=== PATIENT | male | born 1975 | race Asian ===

== ENCOUNTER 2021-04-30 05:36 | Day surgery (SDC) | payer OTHER, SELFPAY ==
[~2021-04-30] VITALS: Ht 175.3 cm; Wt 65.8 kg
[2021-04-30] MEDS ORDERED: fentaNYL citrate 0.05 MG/ML VIAL ONE (07:38)
[2021-04-30] MEDS ORDERED: LIDOCAINE 2% 100 MG/5 ML UJET TP ONE (07:39)
[2021-04-30] MEDS ORDERED: MIDAZOLAM 5 MG/5 ML VIAL ONE (07:39)
[2021-04-30] MEDS ORDERED: DEXTROSE 50% 50 ML SYR IVP ONE (07:40)
[2021-04-30] MEDS ORDERED: diphenhydrAMINE 50 MG/ML VIAL ONE (07:40)
[2021-04-30] MEDS ORDERED: fentaNYL citrate 0.05 MG/ML VIAL IVP ONE (14:25)
[2021-04-30] MEDS ORDERED: MIDAZOLAM 2 MG/2 ML VIAL IVP ONE (14:25)
== END 2021-04-30 09:15 | disposition home or self-care (01) ==
LOC: MOR 05:36 → MMU 05:36 → MOR 09:15
PROVIDERS: ATTEND Internal Medicine Gastroenterology
DX: Z12.11 Encounter for screening for malignant neoplasm of colon (principal); K63.89 Other specified diseases of intestine; F84.0 Autistic disorder; B18.1 Chronic viral hepatitis B without delta-agent; I10 Essential (primary) hypertension; E11.9 Type 2 diabetes mellitus without complications; E78.5 Hyperlipidemia, unspecified; E03.9 Hypothyroidism, unspecified; Z79.899 Other long term (current) drug therapy; Z20.822 Contact with and (suspected) exposure to COVID-19
CPT/HCPCS: 45378; 87426; J2250; J3010; J1200